=== PATIENT | male | born 1995 | race Caucasian/White ===

== ENCOUNTER 2018-11-18 21:33 | Emergency (ER) | payer BC ==
[~2018-11-18] VITALS: Ht 182.9 cm; Wt 86.2 kg
--- NOTE | 2018-11-18 21:44 | NUR ---
bibs for r knee pain s/o injury at basketball.
[2018-11-18] MEDS ORDERED: ACETAMINOPHEN ES 500 MG TABLET ONE (21:54)
[2018-11-18] MEDS ORDERED: ACETAMINOPHEN ES 500 MG TABLET PO ONE (22:00)
[2018-11-18] MEDS ORDERED: LORAZEPAM INJ 2 MG/ML VIAL ONE (22:13)
--- NOTE | 2018-11-18 22:28 | NUR ---
lorazepam iv was pulled out from omni- cell by mistake and was returned and withnessed by another RN, Andrey
--- NOTE | 2018-11-18 22:45 | NUR ---
PT WAS PROVIDED W/ R KNEE IMMOBILIZER AND CRUTCHES
--- NOTE | 2018-11-18 22:48 | NUR ---
Patient discharged to home in stable condition. Written and verbal after care instructions given. Patient verbalizes understanding of instruction.
[2018-11-18 22:51] VITALS: BP 138/87
== END 2018-11-18 22:51 | disposition home or self-care (01) ==
LOC: ER 21:36
DX: S83.91XA Sprain of unspecified site of right knee, initial encounter (principal); M25.461 Effusion, right knee; W50.2XXA Accidental twist by another person, initial encounter; Y93.67 Activity, basketball; Y92.89 Other specified places as the place of occurrence of the external cause; Y99.8 Other external cause status
CPT/HCPCS: 73564-TC; J2060